=== PATIENT | female | born 1985 | race African-American/Black ===

== ENCOUNTER 2020-03-11 01:38 | Emergency (ER) | payer OTHER ==
[2020-03-11 02:02] VITALS: BP 126/73; PULSE 92; TEMP 98.5; BMI 35.9
== END 2020-03-11 05:25 | disposition home or self-care (01) ==
LOC: JER 01:38
DX: F19.920 Other psychoactive substance use, unspecified with intoxication, uncomplicated (principal)
CPT/HCPCS: 99283-25